=== PATIENT | male | born 1970 | race Asian ===

== ENCOUNTER 2019-01-01 06:29 | Day surgery (SDC) | payer OTHER ==
[2019-01-01] MEDS ORDERED: BACITRACIN/POLYMYXIN 28.35 GM OINT TOP (07:31)
[2019-01-01] MEDS ORDERED: BUPIVACAINE 0.5% (SDV) 30 ML INJ (07:31)
[2019-01-01] MEDS ORDERED: LIDOCAINE 1% (MPF) 30 ML INJ (07:31)
[2019-01-01] MEDS: BUPIVACAINE 0.5% (MPF) 30 ML INJ INJ (07:55)
[2019-01-01] MEDS: LIDOCAINE 1% (MPF) 30 ML INJ INJ (07:55)
[2019-01-01] MEDS ORDERED: FENTAnyl 50 MCG/ML VIAL (07:56)
[2019-01-01] MEDS ORDERED: MIDAZOLAM 1 MG/ML 2 ML INJ (07:57)
[2019-01-01] MEDS ORDERED: DEXAMETHASONE 4 MG/ML 1 ML INJ (08:17)
[2019-01-01] MEDS: DEXAMETHASONE 4 MG/ML 1 ML INJ INJ (08:25)
[2019-01-01] MEDS ORDERED: CEFAZOLIN 1 GM INJ (08:27)
[2019-01-01] MEDS ORDERED: PROPOFOL 20 ML (08:27)
[2019-01-01] MEDS ORDERED: LIDOCAINE 2% (SDV) 5 ML INJ (08:27)
[2019-01-01] MEDS ORDERED: HYDROmorphONE 1 MG/5 ML IV SYRINGE IV ×2 (09:00)
[2019-01-01] MEDS ORDERED: ONDANSETRON 4 MG INJ IV (09:00)
[2019-01-01] MEDS ORDERED: MEPERIDINE 25 MG INJ IV (09:00)
[2019-01-01] MEDS ORDERED: FENTAnyl 50 MCG/ML VIAL IV (09:00)
[2019-01-01] MEDS ORDERED: DIPHENHYDRAMINE 50 MG INJ IV (09:00)
== END 2019-01-01 10:30 | disposition home or self-care (01) ==
LOC: SDS 06:29
DX: M20.42 Other hammer toe(s) (acquired), left foot (principal); I10 Essential (primary) hypertension
CPT/HCPCS: 28285

== ENCOUNTER 2019-01-26 08:47 | Emergency (ER) | payer OTHER ==
[2019-01-26] MEDS: KETOROLAC 60 MG INJ IM (09:31)
[2019-01-26] MEDS: DIAZEPAM 5 MG TAB PO (09:32)
[2019-01-26] MEDS: traMADol 50 MG TAB PO (09:32)
== END 2019-01-26 10:47 | disposition home or self-care (01) ==
LOC: FTE 10:47
DX: M62.838 Other muscle spasm (principal); I10 Essential (primary) hypertension
CPT/HCPCS: 96372; 99284-25